=== PATIENT | female | born 1995 | race Hispanic/Latino ===

== ENCOUNTER 2018-11-24 19:54 | Emergency (ER) | payer MEDICAID ==
[2018-11-24] MEDS ORDERED: NA BORATE/BORIC AC/H2O/NACL 120 ML OPHTH IRRIG SOLN ONE (20:19)
[2018-11-24] MEDS ORDERED: TETRACAINE HCL 0.5% 4 ML OPHTH SOLN ONE (20:19)
[2018-11-24] MEDS ORDERED: FLUORESCEIN SODIUM 1 STRIP STRIP ONE (20:19)
== END 2018-11-24 21:11 | disposition home or self-care (01) ==
LOC: EDH 19:54
DX: O26.892 Other specified pregnancy related conditions, second trimester (principal); H11.32 Conjunctival hemorrhage, left eye; Z79.899 Other long term (current) drug therapy; Z98.890 Other specified postprocedural states; Z3A.26 26 weeks gestation of pregnancy

== ENCOUNTER 2019-01-21 15:19 | Emergency (ER) | payer MEDICAID ==
[2019-01-21] MEDS ORDERED: ACETAMINOPHEN EXTRA STRENGTH 500 MG TABLET ONE (16:06)
== END 2019-01-21 17:02 | disposition home or self-care (01) ==
LOC: EDH 15:19
DX: O9A.213 Injury, poisoning and certain other consequences of external causes complicating pregnancy, third trimester (principal); S29.012A Strain of muscle and tendon of back wall of thorax, initial encounter; Z98.890 Other specified postprocedural states; Z3A.34 34 weeks gestation of pregnancy; W01.0XXA Fall on same level from slipping, tripping and stumbling without subsequent striking against object, initial encounter; Y93.89 Activity, other specified; Y92.89 Other specified places as the place of occurrence of the external cause; Y99.8 Other external cause status

== ENCOUNTER 2019-12-15 10:43 | Emergency (ER) | payer MEDICAID, OTHER ==
[2019-12-15] MEDS ORDERED: FLUORESCEIN SODIUM 1 STRIP STRIP ONE (11:14)
== END 2019-12-15 11:46 | disposition home or self-care (01) ==
LOC: EDH 10:43
DX: S05.02XA Injury of conjunctiva and corneal abrasion without foreign body, left eye, initial encounter (principal); X58.XXXA Exposure to other specified factors, initial encounter; Y93.89 Activity, other specified; Y92.89 Other specified places as the place of occurrence of the external cause; Y99.8 Other external cause status

== ENCOUNTER 2020-06-12 09:00 | Emergency (ER) | payer MEDICAID, OTHER ==
[2020-06-12 09:55] LABS: BASOPHILS % (AUTO) 0.4 % (0.0-5.0); EOSINOPHILS % (AUTO) 1.9 % (0.0-8.0); HEMATOCRIT 36.6 % (36-48); LYMPHOCYTES % (AUTO) 27.6 % (21.0-51.0); MEAN CORPUSCULAR HEMOGLOBIN 29.7 pg (27.0-33.0); MEAN CORPUSCULAR HGB CONC 33.9 g/dL (32.0-36.0); MEAN CORPUSCULAR VOLUME 87.8 fL (79-99); MONOCYTES % (AUTO) 4.3 % (3.0-13.0); NEUTROPHILS % (AUTO) 65.3 % (40.0-77.0); PLATELET COUNT (AUTO) 201 K/uL (130-400); RED BLOOD CELL COUNT(AUTO) 4.17 MIL/uL (4.00-5.50); RED CELL DISTRIBUTION WIDTH 11.9 % (11.0-15.5); WHITE BLOOD COUNT (AUTO) 10.4 K/uL (4.8-10.8)
[2020-06-12 11:22] LABS: CREATININE 0.7 mg/dL (0.5-1.5); POTASSIUM 3.6 mmol/L (3.5-5.1)
== END 2020-06-12 11:15 | disposition home or self-care (01) ==
LOC: EDH 09:00
DX: O03.9 Complete or unspecified spontaneous abortion without complication (principal); Z3A.09 9 weeks gestation of pregnancy
CPT/HCPCS: 36415; 76801; 80048; 84702; 85025

== ENCOUNTER 2020-06-27 21:45 | Observation (INO) | payer MEDICAID ==
[~2020-06-27] VITALS: Ht 149.9 cm; Wt 68.0 kg
[2020-06-27] MEDS ORDERED: ONDANSETRON 4MG INJ ONE (22:03)
[2020-06-27] MEDS ORDERED: DiphenhydrAMINE HCL 50 MG/ML VIAL ONE (22:03)
[2020-06-27] MEDS ORDERED: ORPHENADRINE CITRATE 30 MG/ML ML ONE (22:04)
[2020-06-27] MEDS ORDERED: KETOROLAC 30MG VIAL (30MG/ML) ONE (22:04)
[2020-06-27 22:15] LABS: BASOPHILS % (AUTO) 0.2 % (0.0-5.0); EOSINOPHILS % (AUTO) 1.7 % (0.0-8.0); HEMATOCRIT 35.7 % (36-48); LYMPHOCYTES % (AUTO) 30.2 % (21.0-51.0); MEAN CORPUSCULAR HEMOGLOBIN 29.6 pg (27.0-33.0); MEAN CORPUSCULAR HGB CONC 33.6 g/dL (32.0-36.0); MEAN CORPUSCULAR VOLUME 88.1 fL (79-99); MONOCYTES % (AUTO) 5.2 % (3.0-13.0); NEUTROPHILS % (AUTO) 62.4 % (40.0-77.0); PLATELET COUNT (AUTO) 233 K/uL (130-400); RED BLOOD CELL COUNT(AUTO) 4.05 MIL/uL (4.00-5.50); RED CELL DISTRIBUTION WIDTH 11.9 % (11.0-15.5)
[2020-06-27] MEDS ORDERED: MEPERIDINE-PF 50 MG/ML SYG ONE (22:23)
[2020-06-27 22:42] LABS: POTASSIUM 3.7 mmol/L (3.5-5.1)
[2020-06-27 23:08] LABS: ALBUMIN 3.4 g/dL (3.5-5.0); BILIRUBIN,TOTAL 0.3 mg/dL (0.2-1.0); TOTAL PROTEIN, SERUM 7.7 g/dL (6.0-8.3)
[2020-06-27 23:14] LABS: INR 0.98 (0.85-1.15); PROTHROMBIN TIME 10.5 SEC (9.6-11.6)
[2020-06-27 23:15] LABS: PARTIAL THROMBOPLASTIN TIME 27.2 SEC (26.3-35.5)
[2020-06-28] MEDS ORDERED: PROMETHAZINE HCL 25 MG/ML 1ML AMPULE IM PRN (00:30)
[2020-06-28] MEDS ORDERED: DEXTROSE 5 %-0.45 % NACL 1,000 ML IV SCH (00:30)
[2020-06-28] MEDS ORDERED: MEPERIDINE-PF 50 MG/ML SYG IM PRN (00:45)
[2020-06-28 01:27] VITALS: BP 101/67
[2020-06-28 02:22] LABS: HEMATOCRIT 29.2 % (36-48)
[2020-06-28 03:05] VITALS: BP 105/55
[2020-06-28 07:33] VITALS: BP 101/54
[2020-06-28 08:20] LABS: HEMATOCRIT 29.3 % (36-48)
[2020-06-28 11:37] VITALS: BP 98/50
[2020-06-28] MEDS ORDERED: IBUPROFEN 800 MG TAB ONE (15:28)
[2020-06-28] MEDS ORDERED: IBUPROFEN 800 MG TAB PO SCH (16:40)
[2020-11-18] MEDS ORDERED: CYCL-309 PO (23:23)
== END 2020-06-28 15:35 | disposition home or self-care (01) ==
LOC: EDH 21:45 → INTOOBSV 21:46 → EDHIP 21:46 → WSH 06-28 01:20
PROVIDERS: ADMIT Obstetrics & Gynecology; ATTEND Obstetrics & Gynecology
DX: N93.9 Abnormal uterine and vaginal bleeding, unspecified (principal); R10.2 Pelvic and perineal pain; Z98.891 History of uterine scar from previous surgery
CPT/HCPCS: 36415 ×2; 76817; 80053; 83033; 84702 ×2; 85014 ×2; 85018 ×2; 85025; 85610; 85730; 86900; 86901; 96360; 96361; 96372; 99284; G0378 ×14; J1200; J1885; J2175; J2360; J2405; J2791; J2550

== ENCOUNTER 2020-06-29 06:12 | Observation (INO) | payer MEDICAID ==
[2020-06-29] VITALS (20 sets, daily range): BP systolic 80–116; BP diastolic 41–69
[2020-06-29] MEDS ORDERED: DiphenhydrAMINE HCL 50 MG/ML VIAL ONE (06:28)
[2020-06-29] MEDS ORDERED: KETOROLAC TROMETHAMINE 30MG/ML ONE (06:28)
[2020-06-29] MEDS ORDERED: METOCLOPRAMIDE 10 MG/2 ML VIAL ONE (06:28)
[2020-06-29] MEDS ORDERED: ONDANSETRON HCL 4 MG/2 ML VIAL ONE ×2 (06:28→11:53)
[2020-06-29] MEDS ORDERED: DIAZEPAM 5 MG/ML 2 ML SYG ONE (06:39)
[2020-06-29 06:40] LABS: BASOPHILS % (AUTO) 0.3 % (0.0-5.0); EOSINOPHILS % (AUTO) 2.4 % (0.0-8.0); HEMATOCRIT 29.4 % (36-48); LYMPHOCYTES % (AUTO) 37.3 % (21.0-51.0); MEAN CORPUSCULAR HEMOGLOBIN 29.4 pg (27.0-33.0); MEAN CORPUSCULAR HGB CONC 32.7 g/dL (32.0-36.0); MEAN CORPUSCULAR VOLUME 90.2 fL (79-99); MONOCYTES % (AUTO) 5.3 % (3.0-13.0); NEUTROPHILS % (AUTO) 54.4 % (40.0-77.0); PLATELET COUNT (AUTO) 217 K/uL (130-400); RED BLOOD CELL COUNT(AUTO) 3.26 MIL/uL (4.00-5.50); RED CELL DISTRIBUTION WIDTH 12.1 % (11.0-15.5); WHITE BLOOD COUNT (AUTO) 10.5 K/uL (4.8-10.8)
[2020-06-29 07:05] LABS: INR 0.95 (0.85-1.15); PROTHROMBIN TIME 10.2 SEC (9.6-11.6)
[2020-06-29 07:06] LABS: PARTIAL THROMBOPLASTIN TIME 25.3 SEC (26.3-35.5)
[2020-06-29 07:11] LABS: ALBUMIN 2.9 g/dL (3.5-5.0); BILIRUBIN,TOTAL 0.1 mg/dL (0.2-1.0); CREATININE 0.9 mg/dL (0.5-1.5); TOTAL PROTEIN, SERUM 6.5 g/dL (6.0-8.3)
[2020-06-29] MEDS ORDERED: MORPHINE SULFATE 4 MG/1ML SYG ONE (08:02)
[2020-06-29] MEDS ORDERED: METHYLERGONOVINE MALEATE 0.2 MG/1 ML ML IM NR (09:15)
[2020-06-29] MEDS ORDERED: OXYTOCIN-LR 20 UNITS/1000 ML 1,000 ML IV SCH (09:15)
[2020-06-29] MEDS ORDERED: MIDAZOLAM HCL 1 MG/ML 2ML VIAL ONE (11:52)
[2020-06-29] MEDS ORDERED: PROPOFOL 10 MG/ML 20ML VIAL IV ONE (11:52)
[2020-06-29] MEDS ORDERED: LIDOCAINE HCL MPF 1% 5ML VIAL ONE (11:52)
[2020-06-29] MEDS ORDERED: FENTANYL CITRATE PF 50 MCG/1 ML 2ML VIAL ONE (11:52)
[2020-06-29] MEDS ORDERED: ROCURONIUM 10MG/1ML SYR 10 MG/ML ML ONE (11:52)
[2020-06-29] MEDS ORDERED: DEXAMETHASONE SOD PHOSPHATE 10MG/ML 1ML VIAL ONE (11:53)
[2020-06-29] MEDS ORDERED: CEFAZOLIN SODIUM 1 GM VIAL IVP ONE (12:19)
[2020-06-29] MEDS ORDERED: GLYCOPYRROLATE 1 MG/5 ML SYRINGE ONE (12:29)
[2020-06-29] MEDS ORDERED: NEOSTIGMINE 5MG/5ML SYR IV ONE (12:29)
[2020-06-29] MEDS ORDERED: IBUPROFEN 600 MG TABLET PO PRN (14:30)
[2020-06-29] MEDS ORDERED: OXYTOCIN 10 USP UNITS/ML 20 UNIT in DEXTROSE 5 %-0.45 % NACL 1,000 ML IV SCH (14:30)
== END 2020-06-29 19:05 | disposition home or self-care (01) ==
LOC: EDH 06:12 → EDHIP 06:13 → WSH 09:05
PROVIDERS: ADMIT Obstetrics & Gynecology; ATTEND Obstetrics & Gynecology
DX: O03.4 Incomplete spontaneous abortion without complication (principal)
CPT/HCPCS: 36415; 59812; 76801; 80053; 84702; 85025; 85610; 85730; 88305; 96365; 96366 ×2; 96372; 99284; A4215; A4351; C1769 ×2; G0378 ×4; J0690; J1100; J1200; J1885; J2210; J2250; J2270; J2405 ×2; J2590 ×2; J2704; J2710; J2765; J3010; J3360; J3490 ×2; J7030; J7042; 96375

== ENCOUNTER 2020-11-18 22:00 | Emergency (ER) | payer MEDICAID ==
[~2020-11-18] VITALS: Ht 149.9 cm; Wt 68.0 kg
[2020-11-18 22:17] VITALS: BP 104/60
[2020-11-18] MEDS ORDERED: ORPHENADRINE CITRATE 30 MG/ML ML IV ONE (23:15)
[2020-11-18] MEDS ORDERED: SODIUM CHLORIDE 0.9% 1000ML 1,000 ML IV ONE (23:15)
[2020-11-18] MEDS ORDERED: KETOROLAC 30MG VIAL (30MG/ML) IV ONE (23:15)
[2020-11-18] MEDS ORDERED: ACETAMINOPHEN 500 MG TABLET PO ONE (23:15)
[2020-11-18] MEDS ORDERED: CYCL10TA7 PO (23:23)
[2020-11-19 00:11] VITALS: BP 110/65
== END 2020-11-19 00:19 | disposition home or self-care (01) ==
LOC: EDH 22:00
DX: G44.209 Tension-type headache, unspecified, not intractable (principal); M62.838 Other muscle spasm
CPT/HCPCS: 96361; 96374; 99283; J2360; J7030

== ENCOUNTER 2021-02-24 12:31 | Observation (INO) | payer MEDICAID ==
[~2021-02-24] VITALS: Ht 149.9 cm; Wt 76.2 kg
[~2021-02-24 12:31] MED LIST: CYCL-309 PO
[2021-02-24 12:32] VITALS: BP 108/47
[2021-02-24 13:30] LABS: APPEARANCE,URINE Cloudy (CLEAR); BILIRUBIN,URINE Negative (NEGATIVE); COLOR,URINE Yellow (YELLOW); GLUCOSE, URINE (UA) Negative (NEGATIVE); KETONES,URINE Trace mg/dL (NEGATIVE); LEUKOCYTE ESTERASE ,URINE Large (NEGATIVE); NITRATE,URINE Negative (NEGATIVE); OCCULT BLOOD,URINE Negative (NEGATIVE); PROTEIN,URINE Trace mg/dL (NEGATIVE)
[2021-02-24 13:45] LABS: BACTERIA,URINE Many /HPF (None Seen); SQUAMOUS EPITHELIAL CELL,UR Many /HPF (0-2)
[2021-02-24 13:46] LABS: YEAST,URINE BUDDING Rare /HPF (None Seen)
== END 2021-02-24 16:00 | disposition home or self-care (01) ==
LOC: EDH 12:31 → LDH 12:32
PROVIDERS: ADMIT Obstetrics & Gynecology; ATTEND Obstetrics & Gynecology
DX: O26.892 Other specified pregnancy related conditions, second trimester (principal); M54.5 Low back pain; R82.90 Unspecified abnormal findings in urine; R10.2 Pelvic and perineal pain; Z3A.26 26 weeks gestation of pregnancy
CPT/HCPCS: 59025; 81001; 87088; G0378 ×3; G0379

== ENCOUNTER 2021-06-12 05:38 | Emergency (ER) | payer MEDICAID ==
[~2021-06-12] VITALS: Ht 149.9 cm; Wt 69.4 kg
[2021-06-12 05:56] VITALS: BP 120/78
== END 2021-06-12 06:36 | disposition home or self-care (01) ==
LOC: EDH 05:38
DX: N64.4 Mastodynia (principal); G89.18 Other acute postprocedural pain; Z98.890 Other specified postprocedural states
CPT/HCPCS: 99281

== ENCOUNTER 2021-07-07 15:14 | Emergency (ER) | payer MEDICAID ==
[~2021-07-07] VITALS: Ht 149.9 cm; Wt 70.3 kg
[2021-07-07 15:26] VITALS: BP 116/50
[2021-07-07] MEDS ORDERED: ALBUTEROL INHALER 90MCG/INH IH PRN (17:30)
[2021-07-07] MEDS ORDERED: ACETAMINOPHEN WITH CODEINE 1 TAB TAB PO ONE (17:30)
[2021-07-07] MEDS ORDERED: D-ME1POW16 PO (18:13)
[2021-07-07] MEDS ORDERED: NIRM1TAB PO (18:13)
[2021-07-07] MEDS ORDERED: IBUP-1552 PO (18:18)
== END 2021-07-07 19:37 | disposition home or self-care (01) ==
LOC: EDH 15:14
DX: U07.1 COVID-19 (principal); J06.9 Acute upper respiratory infection, unspecified; Z79.1 Long term (current) use of non-steroidal anti-inflammatories (NSAID)
CPT/HCPCS: 87635; 99283; C9803

== ENCOUNTER 2021-11-22 11:59 | Emergency (ER) | payer MEDICAID ==
[~2021-11-22] VITALS: Ht 149.9 cm; Wt 68.0 kg
[~2021-11-22 11:59] MED LIST changes: +D-ME1POW16 PO; +IBUP-1552 PO; +NIRM1TAB PO
[2021-11-22] MEDS ORDERED: IBUPROFEN 600 MG TABLET PO ONE (13:00)
[2021-11-22] MEDS ORDERED: IBUP-2070 PO (13:07)
[2021-11-22] MEDS ORDERED: CLIN-141 PO (13:07)
[2021-11-22 13:15] VITALS: BP 120/77
== END 2021-11-22 13:30 | disposition home or self-care (01) ==
LOC: EDH 11:59
DX: K06.1 Gingival enlargement (principal); Z98.890 Other specified postprocedural states

== ENCOUNTER 2023-08-07 14:46 | Emergency (ER) | payer MEDICAID, OTHER ==
[~2023-08-07] VITALS: Ht 149.9 cm; Wt 63.5 kg
[~2023-08-07 14:46] MED LIST changes: +CLIN-141 PO; +IBUP-2070 PO
[2023-08-07 15:41] LABS: BASOPHILS # (AUTO) 0.02 K/uL (0.00-0.20); BASOPHILS % (AUTO) 0.3 % (0.0-5.0); EOSINOPHILS % (AUTO) 2.6 % (0.0-8.0); HEMATOCRIT 36.8 % (36-48); IMMATURE GRANULOCYTE ABSOLUTE 0.02 K/uL (0-1); LYMPHOCYTES # (AUTO) 3.3 K/uL (1.0-4.8); LYMPHOCYTES % (AUTO) 42.7 % (21.0-51.0); MEAN CORPUSCULAR HEMOGLOBIN 28.8 pg (27.0-33.0); MEAN CORPUSCULAR HGB CONC 33.4 g/dL (32.0-36.0); MEAN CORPUSCULAR VOLUME 86.2 fL (79-99); MONOCYTES # (AUTO) 0.5 K/uL (0.1-1.0); MONOCYTES % (AUTO) 6.5 % (3.0-13.0); NEUTROPHILS # (AUTO) 3.7 K/uL (1.8-7.7); NEUTROPHILS % (AUTO) 47.6 % (40.0-77.0); PLATELET COUNT (AUTO) 223 K/uL (130-400); RED BLOOD CELL COUNT(AUTO) 4.27 MIL/uL (4.00-5.50); WHITE BLOOD COUNT (AUTO) 7.7 K/uL (4.8-10.8)
[2023-08-07 15:51] LABS: CREATININE 0.7 mg/dL (0.5-1.5); POTASSIUM 3.8 mmol/L (3.5-5.1)
[2023-08-07 15:52] LABS: APPEARANCE,URINE CLEAR (CLEAR); BILIRUBIN,URINE NEGATIVE (NEGATIVE); COLOR,URINE COLORLESS (YELLOW); GLUCOSE, URINE (UA) NEGATIVE (NEGATIVE); KETONES,URINE NEGATIVE (NEGATIVE); LEUKOCYTE ESTERASE ,URINE NEGATIVE Leu/uL (NEGATIVE); NITRATE,URINE NEGATIVE (NEGATIVE); OCCULT BLOOD,URINE NEGATIVE (NEGATIVE); PH,URINE 6.5 (5.0-8.0); PROTEIN,URINE NEGATIVE (NEGATIVE); UROBILINOGEN,URINE 0.2 mg/dL (0.2-1.0)
[2023-08-07 15:52] LABS: INR <= 0.93 (0.85-1.15); PROTHROMBIN TIME 10.8 SEC (9.6-11.6)
[2023-08-07 15:53] LABS: PARTIAL THROMBOPLASTIN TIME 29.6 SEC (26.3-35.5)
[2023-08-07 15:56] LABS: ADD UA MICROSCOPIC NO
[2023-08-07 16:06] LABS: ALBUMIN 3.7 g/dL (3.5-5.0); BILIRUBIN,TOTAL 0.3 mg/dL (0.2-1.0); TOTAL PROTEIN, SERUM 7.1 g/dL (6.0-8.3)
[2023-08-07 16:19] LABS: B-TYPE NATRIURETIC PEPTIDE 12 pg/mL (0-100)
[2023-08-07] MEDS ORDERED: IOHEXOL-350 75 ML VIAL IV ONE (16:34)
[2023-08-07 16:56] LABS: RAPID GROUP A STREP negative (NEGATIVE)
[2023-08-07 17:04] LABS: SARS-CoV-2, RNA, NAAT NEGATIVE SARS CoV-2 (NEGATIVE)
[2023-08-07 17:45] VITALS: BP 107/60; PULSE 57; RESP 16; O2SAT 98
[2023-08-07 18:09] LABS: INFLUENZA TYPE A Negative For Type A (NEGATIVE); INFLUENZA TYPE B Negative For Type B (NEGATIVE)
== END 2023-08-07 18:27 | disposition home or self-care (01) ==
LOC: EDH 14:46
DX: G43.109 Migraine with aura, not intractable, without status migrainosus (principal); Z79.899 Other long term (current) drug therapy; F80.89 Other developmental disorders of speech and language
CPT/HCPCS: 99285; 70496; 92522; 92610; 71045; 87635; 82550; 83721; 84484; 80053; 83880; 85025; 85610; 85730; 87880; 87804 ×2; 82948; 81003; 81025; 36415; 70498; 93005; 70450; Q9967

== ENCOUNTER 2023-11-27 12:46 | Emergency (ER) | payer OTHER ==
[~2023-11-27] VITALS: Ht 149.9 cm; Wt 63.5 kg
[2023-11-27 13:58] LABS: BASOPHILS # (AUTO) 0.02 K/uL (0.00-0.20); BASOPHILS % (AUTO) 0.2 % (0.0-5.0); EOSINOPHILS # (AUTO) 0.15 K/uL (0.00-0.70); EOSINOPHILS % (AUTO) 1.8 % (0.0-8.0); HEMATOCRIT 39.3 % (36-48); IMMATURE GRANULOCYTE ABSOLUTE 0.03 K/uL (0-1); LYMPHOCYTES # (AUTO) 2.4 K/uL (1.0-4.8); LYMPHOCYTES % (AUTO) 28.7 % (21.0-51.0); MEAN CORPUSCULAR HEMOGLOBIN 29.5 pg (27.0-33.0); MEAN CORPUSCULAR HGB CONC 33.3 g/dL (32.0-36.0); MEAN CORPUSCULAR VOLUME 88.5 fL (79-99); MONOCYTES # (AUTO) 0.5 K/uL (0.1-1.0); MONOCYTES % (AUTO) 5.4 % (3.0-13.0); NEUTROPHILS # (AUTO) 5.3 K/uL (1.8-7.7); NEUTROPHILS % (AUTO) 63.5 % (40.0-77.0); PLATELET COUNT (AUTO) 250 K/uL (130-400); RED BLOOD CELL COUNT(AUTO) 4.44 MIL/uL (4.00-5.50); RED CELL DISTRIBUTION WIDTH 11.9 % (11.0-15.5); WHITE BLOOD COUNT (AUTO) 8.3 K/uL (4.8-10.8)
[2023-11-27 14:07] LABS: CREATININE 0.8 mg/dL (0.5-1.0)
[2023-11-27] MEDS ORDERED: POLY454P5 MC (14:46)
[2023-11-27] MEDS ORDERED: DOCU-116 PO (14:46)
[2023-11-27] MEDS ORDERED: LINA145C PO (14:46)
[2023-11-27 15:07] VITALS: BP 111/74; PULSE 62; RESP 16; O2SAT 99
== END 2023-11-27 15:23 | disposition home or self-care (01) ==
LOC: EDH 12:46
DX: K59.00 Constipation, unspecified (principal)
CPT/HCPCS: 36415; 80048; 85025

== ENCOUNTER 2024-05-21 19:45 | Emergency (ER) | payer SELFPAY ==
[~2024-05-21] VITALS: Ht 149.9 cm; Wt 61.2 kg
[~2024-05-21 19:45] MED LIST changes: +DOCU-116 PO; +LINA145C PO; +POLY454P5 MC
[2024-05-21] MEDS ORDERED: ACET-66 PO (21:01)
[2024-05-21] MEDS ORDERED: IBUP-2076 PO (21:01)
[2024-05-21] MEDS ORDERED: KETO10 PO (21:01)
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
[2024-05-21] MEDS: acetaMINOPHEN WITH coDEINE 1 TAB TAB PO ONE (21:39)
[2024-05-21] MEDS: ketOROlac 30MG VIAL (30MG/ML) IM ONE (21:39)
[2024-05-21 21:42] VITALS: BP 110/60; PULSE 56; RESP 16; TEMP 98.5; O2SAT 98
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
--- NOTE | 2024-05-21 21:51 | NUR ---
BRAND STRATEGIST CHIVO SPOKE WITH PT, AND EDUCATED PT FURTHERMORE ON IMAGING CRITERA. PT IS UNDERSTANDS AND IS READY FOR DC.
== END 2024-05-21 21:56 | disposition home or self-care (01) ==
LOC: EDH 19:45
DX: G44.209 Tension-type headache, unspecified, not intractable (principal); H92.01 Otalgia, right ear
CPT/HCPCS: 99283; 96372; J1885

== ENCOUNTER 2024-08-11 17:33 | Emergency (ER) | payer SELFPAY ==
[~2024-08-11] VITALS: Ht 149.9 cm; Wt 63.5 kg
[~2024-08-11 17:33] MED LIST changes: +ACET-66 PO; +IBUP-2076 PO; +KETO10 PO
--- NOTE | 2024-08-11 18:31 | ERN ---
ED Note History of Present Illness Stated Complaint: MULT COMPLAINTS Chief Complaint: Fever Time Seen by MD: 17:35 Time Seen by Midlevel: 18:45 Dictation: Ms. Ryan is a 29 year old female with no reported chronic health issues who presented to the emergency department this evening for evaluation of flu symptoms. She states she has been experiencing fatigue, general weakness, headache, nonproductive cough, decreased appetite, and fever. She states her daughter was diagnosed with strep and then a few days later influenza. She denies having chest pain, palpitations, shortness of breath, abdominal pain, nausea, vomiting, diarrhea, dysuria, or dizziness. Allergies: Coded Allergies: No Known Drug Allergies (Unverified Allergy, Unknown, 11/24/18) Home Meds Active Scripts Ibuprofen (Ibuprofen) 600 Mg Tablet, 600 MG PO Q6H PRN for PAIN, #15 TAB 0 Refills Prov:CHANO FAIRCHILD CHIEF PORT DIRECTOR 08/11/24 Guaifenesin/Dextromethorphan (Guaifenesin-Dm 200-20 mg/10 ml) 100 Mg-10 Mg/5 Ml Liquid, 10 ML PO q8 hours PRN for cough, #120 ML 0 Refills Prov:CHANO FAIRCHILD CHIEF PORT DIRECTOR 08/11/24 Ondansetron (Ondansetron Odt) 4 Mg Tab.rapdis, 4 MG PO Q6HPRN PRN for nausea, #15 TAB 0 Refills Prov:CHANO FAIRCHILD CHIEF PORT DIRECTOR 08/11/24 Ketorolac Tromethamine (Toradol) 10 Mg Tab, 1 TAB PO Q6HPRN PRN for pain for 3 Days, #10 TAB 0 Refills Prov:SARA GRAFF MD 05/21/24 Ibuprofen (Ibuprofen) 400 Mg Tablet, 400 MG PO Q6HPRN, #15 TAB Prov:SARA GRAFF MD 05/21/24 Acetaminophen (Tylenol) 500 Mg Tab, 1 TAB PO Q6HPRN PRN for pain or fever for 5 Days, #20 TAB 0 Refills Prov:SARA GRAFF MD 05/21/24 Polyethylene Glycol 1000 (Polyethylene Glycol) 500 Gm Powder, 17 GM MC DAILY, #500 GM Dissolve 2 capfuls in 6-8oz of water daily for 5 days. Then dissolve 1 capful daily for 7 days. Prov:AZIZA JIMENEZ 11/27/23 Docusate Sodium (Colace) 100 Mg Capsule, 100 MG PO TID for constipation for 10 Days, #30 CAP 0 Refills Prov:BARBARAMARTHA PA 11/27/23 Linaclotide (Linzess) 145 Mcg Capsule, 145 MCG PO DAILY for 30 Days, #30 CAP Prov:KASHMIR JIMENEZIS Cesar WATKINS 11/27/23 Ibuprofen (Ibuprofen) 600 Mg Tablet, 600 MG PO Q6H PRN for PAIN, #15 TAB Prov:EAMON LI TECHNICAL ASST 11/22/21 Clindamycin HCl (Clindamycin HCl) 300 Mg Capsule, 1 CAP PO TID for 10 Days, #30 CAP 0 Refills Prov:LORENA LIMEHNAZ TECHNICAL ASST 11/22/21 Ibuprofen (Ibu) 400 Mg Tablet, 800 MG PO TIDAC, #90 TAB Prov:IZABEL THAPA 07/07/21 D-Methorphan/PE/Acetaminophen (Theraflu Ms Severe Cold Pckt) 1 Each Powd.pack, 1 EACH PO QIDP, #20 PACK Prov:IZABEL THAPA 07/07/21 Nirmatrelvir/Ritonavir (Paxlovid Co-Pack (Eua)) 1 Each Tablet, 1 EACH PO BID for 5 Days, #10 TAB Prov:IZABEL THAPA 07/07/21 Cyclobenzaprine HCl (Cyclobenzaprine HCl) 10 Mg Tablet, 10 MG PO TIDP, #20 TAB 0 Refills Prov:FRANCY KASPER MD 11/18/20 Past Medical History Past Medical History: No Pertinent History Surgical History: Surgical History Other: Social History: Negative, Lives with family LMP: Jul 21, 2024 : 5 Para: 3 Aborts: 1 RN Note Reviewed/Agreed w/PFSH: Yes Review of System Dictation REVIEW OF SYSTEMS: CONSTITUTIONAL: Patient denies sweats and weight changes. Reports fever, chills, fatigue, general weakness EYES: Patient denies any visual symptoms. EARS, NOSE, AND THROAT: No difficulties with hearing. No symptoms of rhinitis or sore throat. CARDIOVASCULAR: Patient denies chest pains, palpitations, orthopnea and paroxysmal nocturnal dyspnea. RESPIRATORY: No dyspnea on exertion, no wheezing reports nonproductive cough GI: No nausea, vomiting, diarrhea, constipation, abdominal pain, hematochezia or melena. Reports decreased appetite : No urinary hesitancy or dribbling. No nocturia or urinary frequency. No abnormal urethral discharge. MUSCULOSKELETAL: No myalgias or arthralgias. NEUROLOGIC: no seizures. Patient denies numbness, tingling or weakness. Reports headache PSYCHIATRIC: Patient denies problems with mood disturbance. No problems with anxiety. ENDOCRINE: No excessive urination or excessive thirst. DERMATOLOGIC: Patient denies any rashes or skin changes. Initial Vital Sign VS Vital Signs Date Time Temp Pulse Resp B/P (MAP) Pulse Ox O2 Delivery O2 Flow Rate FiO2 08/11/24 17:58 98.4 66 16 102/79 100 Room Air 0 08/11/24 19:01 21 Physical Exam Dictation Vital signs: Reviewed. Afebrile Constitutional: No acute distress. Non-toxic appearing. Head/Face: Normocephalic, atraumatic. Eyes: Periorbital areas with no swelling, redness, or edema. Lids and lashes are normal. Conjunctival injection is absent. Sclera anicteric. Pupils equal, round, reactive to light. ENT: Pinnas intact and no signs of trauma or erythema. Ear canals clear and no discharge. TMs no erythema. No nasal discharge or bleeding noted. Oropharynx with no exudate, redness, swelling, masses, exudates, or evidence of obstruction. Uvula midline. Mucous membranes moist. Neck: Trachea midline, no masses palpated, and no cervical lymphadenopathy. No swelling. Supple, full range of motion. Chest/Axilla: No tenderness, no crepitus, no paradoxical movement, no retractions. Cardiovascular: Regular rate, regular rhythm, no murmur, no gallops. Symmetric pulses. No peripheral edema. Respiratory: Respirations even and unlabored. Lung sounds clear; no wheezes, rales or rhonchi. Room air SpO2 100% dry cough noted. Gastrointestinal: Inspection is normal. No distention is appreciated. Bowel sounds are normal. No mass or organomegaly . There is no tenderness. No rebound. No rigidity. No voluntary or involuntary guarding. No Olivier's sign. Neurological: Normal speech, gross motor function intact, gross sensory function intact. No focal weakness/Paresthesia. Musculoskeletal/Extremities: All extremities have full range of motion, no pain or tenderness on palpation. Symmetric pulses. Integumentary: Intact. Skin is flushed, warm and dry. Cap refill less than 3 seconds. Results (Laboratory/Radiology) Laboratory/Radiology Laboratory Tests Test 08/11/24 18:20 Influenza Type A Antigen Negative For Type A Influenza Type B Antigen Negative For Type B SARS-CoV-2, RNA, NAAT NEGATIVE SARS CoV-2 Group A Streptococcus Rapid positive (NEGATIVE) *A Labs Reviewed?: Yes ED Course ED Course Orders Procedure Category Date Status Time Covid Rna Naat LAB 08/11/24 Complete 18:02 Influenza Type A & B, LAB 08/11/24 Complete Rapid 18:02 Rapid (Group A Strep) LAB 08/11/24 Complete 18:02 Guaifenesin-Codeine PHA 08/11/24 Complete Syrup 5ml (Robitussi 19:30 Ibuprofen 600 Mg PHA 08/11/24 Complete Tablet (Motrin) 19:30 Current Medications Medications (Trade) Dose Ordered Sig/Jcarlos Route PRN Reason Start Time Stop Time Status Last Admin Dose Admin Guaifenesin/ Codeine Phosphate (RobiTUSSin AC 5 ML SYRUP) 5 ml ONCE ONCE PO 08/11/24 19:30 08/11/24 19:31 DC Ibuprofen (moTRIN) 600 mg ONCE ONCE PO 08/11/24 19:30 08/11/24 19:31 DC Vital Signs Date Time Temp Pulse Resp B/P (MAP) Pulse Ox O2 Delivery O2 Flow Rate FiO2 08/11/24 19:01 98.8 74 20 124/78 100 Room Air* 0 21 08/11/24 17:58 98.4 66 16 102/79 100 Room Air 0 Uneventful ED course. Vital signs remained stable; afebrile and normotensive with room air SpO2 100%. Lung sounds are clear. She has dry cough and headache. While in the emergency department she received doses ibuprofen and Robitussin AC. Laboratory findings as noted below. Strep, COVID, and influenza A and B are negative. Findings were discussed with patient and all questions were answered. Medical Decision Making MDM MDM: Differential diagnosis: Influenza, COVID, strep Rationale: Tests considered and ordered secondary to shared decision making include: Lab Previous outside records reviewed: Old ER visits. Risk of complication and/or morbidity or mortality of patient management: None Medications-Per medication reconciliation Need for hospitalization: Patient does not meet criteria for hospitalization. Need for emergency major/minor surgery: No There are no social concerns with this patient. Prescription drug management: Ibuprofen, guaifenesin, ondansetron Prescriptions will include symptomatic care Patient's prior external medical records from other ER visits were reviewed by me as indicated. Prior testing and results from previous visits were reviewed. Prior tests were taken into account with medical decision making and resource utilization, independent historian/historians were used to obtain complete medical history. I independently interpreted the test that were performed, results were reviewed by me and considered findings on radiology if ordered. Medical management and examination interpretation discussions were had by me with other qualified healthcare professionals as indicated for the patient's care. DX & DISP Disposition: Discharge Departure Impression: Primary Impression: Viral respiratory illness Additional Impressions: Cough, Strep pharyngitis Condition: Stable Scripts Amoxicillin (Amoxicillin) 500 Mg Capsule 1 CAP PO TID for 10 Days, #30 CAP 0 Refills Prov: CHANO FAIRCHILD CHIEF PORT DIRECTOR 08/11/24 Ibuprofen (Ibuprofen) 600 Mg Tablet 600 MG PO Q6H PRN for PAIN, #15 TAB 0 Refills Prov: HCANO FAIRCHILD CHIEF PORT DIRECTOR 08/11/24 Guaifenesin/Dextromethorphan (Guaifenesin-Dm 200-20 mg/10 ml) 100 Mg-10 Mg/5 Ml Liquid 10 ML PO q8 hours PRN for cough, #120 ML 0 Refills Prov: CHANO FAIRCHILD CHIEF PORT DIRECTOR 08/11/24 Ondansetron (Ondansetron Odt) 4 Mg Tab.rapdis 4 MG PO Q6HPRN PRN for nausea, #15 TAB 0 Refills Prov: CHANO FAIRCHILD CHIEF PORT DIRECTOR 08/11/24 Additional Instructions: Isolate at home until your symptoms are resolving and you have been fever free times 24 hours. Increase your oral fluid intake. Warm salt water garlges three times daily. Start Amoxicillin three times daily x 10 days for strep. May take ibuprofen every 6 hours as needed for discomfort/fever. Guaifenesin DM every 8 hours as needed for cough. May take Zofran ODT every 6 hours as needed for nausea. You will need to follow up with your primary care physician in the next 2-3 days. Return to the emergency department for any worsening of symptoms or concerns. Referrals: NONE (PCP) Time of Disposition: 19:47 CHANO FAIRCHILD NP Aug 11, 2024 18:31
[2024-08-11 19:01] VITALS: BP 124/78; PULSE 74; RESP 20; TEMP 98.7; O2SAT 100
[2024-08-11 19:03] LABS: SARS-CoV-2, RNA, NAAT NEGATIVE SARS CoV-2 (NEGATIVE)
[2024-08-11 19:14] LABS: INFLUENZA TYPE A Negative For Type A (NEGATIVE); INFLUENZA TYPE B Negative For Type B (NEGATIVE)
[2024-08-11] MEDS ORDERED: GUAIFDM PO (19:20)
[2024-08-11] MEDS ORDERED: IBUP-2070 PO (19:20)
[2024-08-11] MEDS ORDERED: ONDA-243 PO (19:20)
[2024-08-11 19:24] LABS: RAPID GROUP A STREP positive (NEGATIVE)
[2024-08-11] MEDS ORDERED: AMOX500C2 PO (19:46)
[2024-08-11] MEDS: ibuPROFEN 600 MG TABLET PO ONE (19:49)
[2024-08-11] MEDS: guaiFENesin-coDEINE 5 ML SYRUP PO ONE (19:49)
== END 2024-08-11 20:01 | disposition home or self-care (01) ==
LOC: EDH 17:33
DX: J02.0 Streptococcal pharyngitis (principal); R05.9 Cough, unspecified; B97.89 Other viral agents as the cause of diseases classified elsewhere; Z20.822 Contact with and (suspected) exposure to COVID-19
CPT/HCPCS: 87635; 87804; 87880; 99283

== ENCOUNTER 2024-09-18 12:38 | Emergency (ER) | payer SELFPAY ==
[~2024-09-18] VITALS: Ht 149.9 cm; Wt 63.5 kg
[~2024-09-18 12:38] MED LIST changes: +AMOX500C2 PO; +GUAIFDM PO; +ONDA-243 PO
[2024-09-18] MEDS: acetaMINOPHEN 325 MG TAB PO STA (14:11)
[2024-09-18] MEDS: ketOROlac 15MG/ML VIAL (15MG/ML) IM STA (14:11)
[2024-09-18 14:13] VITALS: BP 104/60; PULSE 82; RESP 16; TEMP 98.1; O2SAT 98
--- NOTE | 2024-09-18 14:35 | HMCIMG ---
LUMBAR SPINE 2-3VWS HISTORY: Status post fall COMPARISON: None FINDINGS: 3 images of the lumbar spine were obtained. There is straightening of normal lordotic curvature which may be related to muscle spasm or positioning. No loss of vertebral height is seen. No fracture or dislocation is seen. IMPRESSION: 1. No fracture is seen.
--- NOTE | 2024-09-18 14:36 | HMCIMG ---
SACRUM/COCCYX 2+VWS HISTORY: Status post fall COMPARISON: None TECHNIQUE: 3 images of sacrum and coccyx were obtained. FINDINGS: There is no acute displaced fracture or dislocation. IMPRESSION: 1. Findings as described above.
--- NOTE | 2024-09-18 14:43 | ERN ---
ED Note History of Present Illness Stated Complaint: FALL SEVERE PAIN Chief Complaint: Mechanical Fall Time Seen by MD: 12:38 Time Seen by Midlevel: 12:40 Dictation: 29-year-old female status post ground level fall on Sunday. Patient states she landed on her buttocks and now complaining of sacral area pain. Denies any numbness, tingling to the lower extremities. Denies any incontinence or saddle paresthesias. Allergies: Coded Allergies: No Known Drug Allergies (Unverified Allergy, Unknown, 11/24/18) Home Meds Active Scripts Amoxicillin (Amoxicillin) 500 Mg Capsule, 1 CAP PO TID for 10 Days, #30 CAP 0 Refills Prov:CHANO FAIRCHILD LENS GENERATING MACHINE TENDER 08/11/24 Ibuprofen (Ibuprofen) 600 Mg Tablet, 600 MG PO Q6H PRN for PAIN, #15 TAB 0 Refills Prov:DEVORAHCHANO John LENS GENERATING MACHINE TENDER 08/11/24 Guaifenesin/Dextromethorphan (Guaifenesin-Dm 200-20 mg/10 ml) 100 Mg-10 Mg/5 Ml Liquid, 10 ML PO q8 hours PRN for cough, #120 ML 0 Refills Prov:CHANO FAIRCHILD LENS GENERATING MACHINE TENDER 08/11/24 Ondansetron (Ondansetron Odt) 4 Mg Tab.rapdis, 4 MG PO Q6HPRN PRN for nausea, #15 TAB 0 Refills Prov:CHANO FAIRCHILD LENS GENERATING MACHINE TENDER 08/11/24 Ketorolac Tromethamine (Toradol) 10 Mg Tab, 1 TAB PO Q6HPRN PRN for pain for 3 Days, #10 TAB 0 Refills Prov:SARA GRAFF MD 05/21/24 Ibuprofen (Ibuprofen) 400 Mg Tablet, 400 MG PO Q6HPRN, #15 TAB Prov:SARA GRAFF MD 05/21/24 Acetaminophen (Tylenol) 500 Mg Tab, 1 TAB PO Q6HPRN PRN for pain or fever for 5 Days, #20 TAB 0 Refills Prov:SARA GRAFF MD 05/21/24 Polyethylene Glycol 1000 (Polyethylene Glycol) 500 Gm Powder, 17 GM MC DAILY, #500 GM Dissolve 2 capfuls in 6-8oz of water daily for 5 days. Then dissolve 1 capful daily for 7 days. Prov:AZIZA JIMENEZ 11/27/23 Docusate Sodium (Colace) 100 Mg Capsule, 100 MG PO TID for constipation for 10 Days, #30 CAP 0 Refills Prov:AZIZA JIMENEZ 11/27/23 Linaclotide (Linzess) 145 Mcg Capsule, 145 MCG PO DAILY for 30 Days, #30 CAP Prov:AZIZA JIMENEZ 11/27/23 Ibuprofen (Ibuprofen) 600 Mg Tablet, 600 MG PO Q6H PRN for PAIN, #15 TAB Prov:CELIA LIEMEHNAZ [employer] ASSEMBLY SUPERVISOR 11/22/21 Clindamycin HCl (Clindamycin HCl) 300 Mg Capsule, 1 CAP PO TID for 10 Days, #30 CAP 0 Refills Prov:EAMON LI [employer] ASSEMBLY SUPERVISOR 11/22/21 Ibuprofen (Ibu) 400 Mg Tablet, 800 MG PO TIDAC, #90 TAB Prov:IZABEL THAPA 07/07/21 D-Methorphan/PE/Acetaminophen (Theraflu Ms Severe Cold Pckt) 1 Each Powd.pack, 1 EACH PO QIDP, #20 PACK Prov:IZABEL THAPA 07/07/21 Nirmatrelvir/Ritonavir (Paxlovid Co-Pack (Eua)) 1 Each Tablet, 1 EACH PO BID for 5 Days, #10 TAB Prov:IZABEL THAPA 07/07/21 Cyclobenzaprine HCl (Cyclobenzaprine HCl) 10 Mg Tablet, 10 MG PO TIDP, #20 TAB 0 Refills Prov:FRANCY KASPER MD 11/18/20 Past Medical History Past Medical History: No Pertinent History Surgical History: Surgical History Other: Social History: Negative, Lives with family : 5 Para: 3 Aborts: 1 Review of System Dictation Constitutional: Negative for fever,chills, and weight loss Eyes: Negative for injury, pain,redness, and discharge ENT: Negative for injury,pain or swelling Cardiovascular: Negative for chest pain, palpitations, and edema Respiratory: Negative for shortness of breath, cough, and wheezing, Abdomen/GI: Negative for abdominal pain, nausea, vomiting, diarrhea, and constipation Back: Negative for injury and pain : Negative for injury, bleeding and discharge MS/Extremity: Negative for injury and deformity complaining of lower back pain Skin: Negative for rash, and discoloration Neuro: Negative for headache, weakness, numbness, tingling, and seizure Psych: Negative for suicide ideation, homicidal ideation, and hallucinations Review of Systems: was completed Initial Vital Sign VS Vital Signs Date Time Temp Pulse Resp B/P (MAP) Pulse Ox O2 Delivery O2 Flow Rate FiO2 09/18/24 13:15 97.0 86 20 102/58 99 Room Air 0 09/18/24 14:13 21 Physical Exam Dictation General: awake, alert, NAD Head/Face: Normocephalic, atraumatic Eyes: PERRL, EOMI, vision at baseline ENT: oral cavity clear, TMs clear, no signs of infection Neck: Trachea midline, supple, no nuchal rigidity Cardiovascular: RRR, normal S1/S2, No MRGs, no JVD Respiratory: CTAB, no respiratory distress, No rales or wheezes Abdomen: Soft, non-tender, non-distended, normal bowel sounds, no guarding or rebound. Skin: Warm, dry, normal turgor, no rash MS/Extremity: Pulses equal, no cyanosis, neurovascular intact, FROM complaining of lower back pain along with the coccyx/sacral pain on palpation Neuro: COAx4, GCS 15, strength 5/5, CN 2-12 intact, normal cerebellar exam, normal gait, Psych: Normal behavior, mood, and affect normal Results (Laboratory/Radiology) Labs Reviewed?: Yes X-RAY Comment: [address] [phone] IMAGING REPORT Signed PATIENT: ARYAN ROCHA MR#: [id number] : 1995 SEX: F AGE: 29 LOCATION: [facility] ORDER 133 STATUS: REG REPORT#: [id number] SERVICE 133 REASON: fall ORDERING PHYSICIAN: LUCIA MIX NP PROCEDURE: LUMB 2 3VW - LUMBAR SPINE 2-3VWS LUMBAR SPINE 2-3VWS HISTORY: Status post fall COMPARISON: None FINDINGS: 3 images of the lumbar spine were obtained. There is straightening of normal lordotic curvature which may be related to muscle spasm or positioning. No loss of vertebral height is seen. No fracture or dislocation is seen. IMPRESSION: 1. No fracture is seen. DICTATED BY: GLORIA LONGORIA MD DATE: 09/18/241431 ELECTRONICALLY SIGNED BY: GLORIA LONGORIA MD DATE: 09/18/241434 [place] [address] [place], [place] [id number] IMAGING REPORT Signed PATIENT: ARYAN ROCHA MR#: [id number] : 1995 SEX: F AGE: 29 LOCATION: [facility] ORDER 31 STATUS: REG [facility] REPORT#: [id number] SERVICE 30 REASON: fall ORDERING PHYSICIAN: LUCIA MIX NP PROCEDURE: SAC CARLOS A 2V - SACRUM/COCCYX 2+VWS SACRUM/COCCYX 2+VWS HISTORY: Status post fall COMPARISON: None TECHNIQUE: 3 images of sacrum and coccyx were obtained. FINDINGS: There is no acute displaced fracture or dislocation. IMPRESSION: 1. Findings as described above. DICTATED BY: GLORIA LONGORIA MD DATE: 09/18/241432 ELECTRONICALLY SIGNED BY: GLORIA LONGORIA MD DATE: 09/18/241435 ED Course ED Course Orders Procedure Category Date Status Time Lumbar Spine 2-3vws RAD 09/18/24 Resulted 13:31 Sacrum/Coccyx 2+Vws RAD 09/18/24 Resulted 13:31 Acetaminophen 325 Tab PHA 09/18/24 Complete (Tylenol 325mg Tab 13:32 Ketorolac PHA 09/18/24 Complete Tromethamine 15mg/Ml 13:32 Current Medications Medications (Trade) Dose Ordered Sig/Jcarlos Route PRN Reason Start Time Stop Time Status Last Admin Dose Admin Acetaminophen (TYLenol 325MG TAB) 650 mg ONCE STAT PO 09/18/24 13:32 09/18/24 13:34 DC 09/18/24 14:11 Ketorolac Tromethamine (toRADol) 15 mg ONCE STAT IM 09/18/24 13:32 09/18/24 13:34 DC Vital Signs Date Time Temp Pulse Resp B/P (MAP) Pulse Ox O2 Delivery O2 Flow Rate FiO2 09/18/24 14:13 98.1 82 16 104/60 98 Room Air* 0 21 09/18/24 13:15 97.0 86 20 102/58 99 Room Air 0 Medical Decision Making MDM MDM: 29-year-old female status post ground level fall on Sunday. Patient states she landed on her buttocks and now complaining of sacral area pain. Denies any numbness, tingling to the lower extremities. Denies any incontinence or saddle paresthesias. Three of the sacral and L-spine normal. Discussed findings with the patient. Educated patient she can take [id number] Tylenol or Motrin for pain control and follow up with PCP as needed patient verbalized understanding, answered all questions. Differential diagnosis: Sick girl contusion, coccyx fracture, L-spine injury Rationale: Tests considered and ordered secondary to shared decision making include: Previous outside records reviewed: Old ER visits. Risk of complication and/or morbidity or mortality of patient management: None Medications-Per medication reconciliation Need for hospitalization: Patient does not meet criteria for hospitalization. Need for emergency major/minor surgery: No There are no social concerns with this patient. Prescription drug management Prescriptions will include symptomatic care Patient's prior external medical records from other ER visits were reviewed by me as indicated. Prior testing and results from previous visits were reviewed. Prior tests were taken into account with medical decision making and resource utilization, independent historian/historians were used to obtain complete medical history. I independently interpreted the test that were performed, results were reviewed by me and considered findings on radiology if ordered. Medical management and examination interpretation discussions were had by me with other qualified healthcare professionals as indicated for the patient's care. DX & DISP Disposition: Discharge Departure Impression: Primary Impression: Sacral contusion Condition: Stable Additional Instructions: Take Tylenol or Motrin [id number] for pain control. Your x-rays are normal. Follow up with primary doctor as needed. Referrals: SELF,REFERRAL (PCP) Time of Disposition: 14:43 I have reviewed the case, and I agree with, Diagnosis and Plan LUCIA MIX NP Sep 18, 2024 14:43
== END 2024-09-18 14:50 | disposition home or self-care (01) ==
LOC: EDH 12:38
DX: S30.0XXA Contusion of lower back and pelvis, initial encounter (principal); Z79.899 Other long term (current) drug therapy; Z98.890 Other specified postprocedural states; W18.39XA Other fall on same level, initial encounter; Y93.89 Activity, other specified; Y92.89 Other specified places as the place of occurrence of the external cause; Y99.8 Other external cause status
CPT/HCPCS: 72100; 72220; 99284